=== PATIENT | female | born 1975 | race Caucasian/White ===

== ENCOUNTER 2016-09-10 19:05 | Emergency (ER) | payer SELFPAY ==
[~2016-09-10] VITALS: Ht 170.2 cm; Wt 79.7 kg
[~2016-09-10 19:05] MED LIST: AMBIEN CR6.25 MG PO; AUGMENTIN875 MG PO; BENADRYL25 MG PO; BENTYL10 MG PO; CHLORDIAZEPOXI1 EACH PO; DILAUDID2 MG PO; IRON325 M1 PO; LITHIUM CARBON600 MG PO; LITHOBID300 MG PO; MULTI-DAY VITA1 EACH PO; PAXIL40 MG PO; PERCOCET 5/31 TABLET PO; PRILOSEC OTC20 MG PO; PROMETHAZINE HC25 M1 PO; PROTONIX40 MG PO; ULTRAM50 MG PO; VICODIN 5-3001 EACH PO; VITRON-C TABLE1 EACH PO; ZOFRAN ODT4 MG PO; ZOFRAN4 MG PO
[2016-09-10 20:07] LABS: ADD MIUA? YES; BILIRUBIN NEGATIVE; BLOOD NEGATIVE; COLOR YELLOW ((YELLOW)); GLUCOSE (STRIP) NEGATIVE; KETONES NEGATIVE; LEUKOCYTES MODERATE; NITRITE NEGATIVE; PH, URINE 6.5 (5-8); PROTEIN (STRIP) NEGATIVE; SPECIFIC GRAVITY 1.027 (1.000-1.030)
[2016-09-10 20:37] LABS: RED BLOOD CELLS 0-5 /HPF (0-5)
[2016-09-10 20:38] LABS: BACTERIA 2+; CALCIUM OXALATE CRYSTALS 3+; CASTS NONE SEEN /LPF; CRYSTALS PRESENT; EPITHELIAL CELLS 4+; MUCUS 1+; UCUL ADDED? YES
[2016-09-10 22:17] LABS: CHLORIDE 104 mEq/L (99-109); POTASSIUM 3.9 mEq/L (3.7-5.4); SODIUM 142 mEq/L (136-147)
[2016-09-10 22:20] LABS: GLUCOSE 91 mg/dL (70-99)
[2016-09-10 22:21] LABS: ANION GAP 15 MEQ/L (2-14)
[2016-09-10 22:22] LABS: TOTAL BILIRUBIN 0.4 mg/dL (0.0-1.0)
[2016-09-10 22:23] LABS: ALKALINE PHOSPHATASE 91 IU/L (3-129); GFR ESTIMATE (CALCULATED) > 59 mL/min/
[2016-09-10 22:24] LABS: UREA NITROGEN (BUN) 11 mg/dL (9-23)
[2016-09-10 22:33] LABS: QUANTITATIVE HCG < 4.0 MIU/ML
[2016-09-10 23:57] VITALS: BP 120/93
[2016-09-10] MEDS ORDERED: ZOFRAN ODT4 MG PO (23:59)
[2016-09-10] MEDS ORDERED: DILAUDID2 MG PO (23:59)
[2016-09-10] MEDS ORDERED: CIPRO500 MG PO (23:59)
== END 2016-09-11 00:22 | disposition home or self-care (01) ==
LOC: EME 19:05 → RME 19:05
DX: N39.0 Urinary tract infection, site not specified (principal); R10.13 Epigastric pain; R11.2 Nausea with vomiting, unspecified
CPT/HCPCS: 74177; 80053; 81003; 83690; 84702; 85027; 87086; 99281; 99285; J1170; J1200; J2765; J7030

== ENCOUNTER 2017-01-11 13:57 | Emergency (ER) | payer SELFPAY ==
[~2017-01-11] VITALS: Ht 170.2 cm; Wt 77.7 kg
[~2017-01-11 13:57] MED LIST changes: +CIPRO500 MG PO
[2017-01-11 15:17] LABS: EOSINOPHIL (%) 1.4 % (0-5); EOSINOPHIL COUNT 0.1 K/uL (0-0.3); HEMATOCRIT 40.7 % (36.0-46.0); IMMATURE GRANULOCYTE (%) 0.2 % (0.0-0.7); INSTRUMENT ABS NEUTROPHIL CT 2.7 K/uL; LYMPHOCYTE COUNT 1.2 K/uL (1.0-2.8); MCH 29.8 PG (29.0-34.0); MCHC 34.2 G/DL (30.0-36.0); MCV 87.3 FL (83-99); MEAN PLAT.VOLUME 10.5 uM^3 (9.5-12.4); MONOCYTE (%) 8.8 % (3-12); MONOCYTE COUNT 0.4 K/uL (0-0.8); NEUTROPHIL (%) 61.7 % (45-76); NEUTROPHIL COUNT 2.7 K/uL (1.8-6.4); PLATELET COUNT 234 K/uL (156-360); RBC DIS.WIDTH-CV 15.9 % (11.8-14.6); RBC DIS.WIDTH-SD 51.5 % (39-53); RED BLOOD COUNT 4.66 M/uL (3.80-5.20); WHITE BLOOD COUNT 4.3 K/uL (4.1-10.2)
[2017-01-11 15:30] LABS: CHLORIDE 105 mEq/L (99-109); SODIUM 139 mEq/L (136-147)
[2017-01-11 15:33] LABS: GLUCOSE 92 mg/dL (70-99)
[2017-01-11 15:34] LABS: ANION GAP 11 MEQ/L (2-14)
[2017-01-11 15:35] LABS: TOTAL BILIRUBIN 0.5 mg/dL (0.0-1.0)
[2017-01-11 15:36] LABS: ALKALINE PHOSPHATASE 63 IU/L (3-129); GFR ESTIMATE (CALCULATED) > 59 mL/min/
[2017-01-11] MEDS ORDERED: MULTIVITAMIN1 EAC2 PO (15:36)
[2017-01-11] MEDS ORDERED: VITAMIN B125000 MCG PO (15:36)
[2017-01-11] MEDS ORDERED: VITRON-C TABLE1 EACH PO (15:37)
[2017-01-11 15:38] LABS: UREA NITROGEN (BUN) 11 mg/dL (9-23)
[2017-01-11 15:40] LABS: LIPASE 38 U/L (1.0-51.0)
[2017-01-11 15:46] LABS: QUANTITATIVE HCG < 4.0 MIU/ML
[2017-01-11 17:17] LABS: ADD MIUA? NO; BILIRUBIN NEGATIVE; BLOOD NEGATIVE; COLOR YELLOW ((YELLOW)); GLUCOSE (STRIP) NEGATIVE; KETONES 5; LEUKOCYTES NEGATIVE; NITRITE NEGATIVE; PROTEIN (STRIP) NEGATIVE; SPECIFIC GRAVITY 1.032 (1.000-1.030); UCUL ADDED? NO; UROBILINOGEN 0.2 MG/DL (0.2-1.0)
[2017-01-11 17:30] VITALS: BP 115/60
[2017-01-11 18:03] LABS: ADD MEDTOX COMMENT Y; AMPHETAMINE NEGATIVE (500 ng/mL); BARBITURATES NEGATIVE (200 ng/mL); BENZODIAZEPINES NEGATIVE (150 ng/mL); COCAINE NEGATIVE (150 ng/mL); INTERNAL CONTROLS VALID? YES; METHADONE NEGATIVE (200 ng/mL); METHAMPHETAMINE NEGATIVE (500 ng/mL); OPIATES (MORPHINE) PRESUMPTIVE POSITIVE (100 ng/mL); OXYCODONE NEGATIVE (100 ng/mL); PHENCYCLIDINE NEGATIVE (25 ng/mL); PROPOXYPHENE NEGATIVE (300 ng/mL); THC CANNABINOIDS NEGATIVE (50 ng/mL); TRICYCLIC ANTIDEPRESSANTS NEGATIVE (300 ng/mL)
== END 2017-01-11 18:13 | disposition left against medical advice (07) ==
LOC: EME 13:57
PROVIDERS: Emergency Medicine
DX: R10.9 Unspecified abdominal pain (principal); Z98.84 Bariatric surgery status; Z03.89 Encounter for observation for other suspected diseases and conditions ruled out; Z53.20 Procedure and treatment not carried out because of patient's decision for unspecified reasons
CPT/HCPCS: 74177; 80053; 81003; 83690; 84702; 84999; 85025; 87493; 99281; 99285; J1200; J1630; J2270; J2405; J7030

== ENCOUNTER 2017-02-25 13:02 | Emergency (ER) | payer SELFPAY ==
[~2017-02-25] VITALS: Ht 172.7 cm; Wt 79.4 kg
[~2017-02-25 13:02] MED LIST changes: +MULTIVITAMIN1 EAC2 PO; +VITAMIN B125000 MCG PO
[2017-02-25 13:15] VITALS: BP 133/68
== END 2017-02-25 14:47 | disposition left against medical advice (07) ==
LOC: EME 13:02
DX: R10.9 Unspecified abdominal pain (principal); Z53.21 Procedure and treatment not carried out due to patient leaving prior to being seen by health care provider
CPT/HCPCS: 80053; 81003; 84702; 85027; 99281; 99282